=== PATIENT | female | born 1955 | race Caucasian/White ===

== ENCOUNTER 2023-12-01 17:08 | Inpatient (IN) | payer MEDICARE, MEDICAID ==
[~2023-12-01] VITALS: Ht 167.6 cm; Wt 74.8 kg
[2023-12-01] MEDS: aspirin 81mg tab.chew PO ONE (18:30)
[2023-12-01] MEDS: ondansetron 4 MG/5 ML oral solution 5ml CUP PO ONE (18:30)
[2023-12-01] MEDS: normal saline 1000ML IV soln IVB ONE (18:30)
[2023-12-01] MEDS ORDERED: FENT-90 TD (18:59)
[2023-12-01] MEDS ORDERED: GABA600T13 PO (19:00)
[2023-12-01] MEDS ORDERED: LEVE750T6 PO (19:01)
[2023-12-01] MEDS ORDERED: LOSA-415 PO (19:02)
[2023-12-01] MEDS ORDERED: HYDR-3965 PO (19:03)
[2023-12-01] MEDS ORDERED: POTA-192 PO (19:04)
[2023-12-01 19:35] LABS: BASOPHILS % (AUTO) 0.2 % (0-1); EOSINOPHILS % (AUTO) 0 % (0-6); HEMATOCRIT 38.5 % (35.0-45.0); HEMOGLOBIN 12.6 g/dl (12.0-16.0); LYMPHOCYTES # (AUTO) 0.2 X10'3 (1.1-4.8); LYMPHOCYTES % (AUTO) 2.7 % (21-51); MEAN CORPUSCULAR HEMOGLOBIN 29.9 PG (27.0-31.0); MEAN CORPUSCULAR HGB CONC 32.8 g/dL (33.0-36.5); MEAN PLATELET VOLUME 9.3 FL (7.4-10.4); MONOCYTES # (AUTO) 0.1 X10'3 (0-0.9); MONOCYTES % (AUTO) 1.5 % (2-12); NEUTROPHILS % (AUTO) 95.6 % (42-75); PLATELET COUNT 216 X10'3 (140-440); RED BLOOD COUNT 4.23 X10'6 (4.20-5.60); RED CELL DISTRIBUTION WIDTH 15.3 % (11.5-14.5); WHITE BLOOD COUNT 7.3 X10'3 (4.5-11.0)
[2023-12-01] MEDS ORDERED: TRIA1TAB3 PO (19:35)
[2023-12-01 19:42] LABS: APTT 34 SECONDS (22-32); INR 1.2 INR; PROTHROMBIN TIME 12.7 SECONDS (9.0-12.0)
[2023-12-01 20:00] LABS: ALBUMIN 2.7 G/DL (3.4-5.0); BLOOD UREA NITROGEN 18 MG/DL (7-18); BUN/CREATININE RATIO 23.4 (10.0-20.0); C-REACTIVE PROTEIN 1.84 MG/DL (0.0-0.5); CALCIUM 7.5 MG/DL (8.5-10.1); CHLORIDE 108 MMOL/L (99-107); CREATININE 0.77 MG/DL (0.40-0.90); ETHANOL < 10 MG/DL (<10); GLUCOSE 125 MG/DL (70-104); LACTATE DEHYDROGENASE 571 U/L (81-234); LIPASE 48 U/L (16-77); PHOSPHORUS 2.4 MG/DL (2.3-4.5); PRO BRAIN NATRIURETIC PEPTIDE 890 PG/ML (0-125); eCRCL 68 ML/MIN; eGFR 74 ML/MIN
[2023-12-01] MEDS: K and/or MAG REPLACEMENT MC SCH (20:00)
[2023-12-01] MEDS ORDERED: normal saline 1000ml 1,000 ML IV SCH (20:00)
[2023-12-01] MEDS ORDERED: magnesium 4gm in 100ml NS 100 ML IV PRN (20:00)
[2023-12-01] MEDS ORDERED: magnesium Cl slow-release 64mg tablet PO PRN (20:00)
[2023-12-01] MEDS ORDERED: potassium Cl 20 mEq SR tablet PO PRN (20:00)
[2023-12-01] MEDS ORDERED: mag hydrox/Alum hydrox/simeth 30ml oral suspension PO PRN (20:00)
[2023-12-01] MEDS ORDERED: acetaminophen 325mg tablet PO PRN ×2 (20:00)
[2023-12-01] MEDS ORDERED: magnesium 2GM in 50ml NS 50 ML IV PRN (20:00)
[2023-12-01] MEDS ORDERED: ondansetron/PF 4mg/2ml inj IV PRN (20:00)
[2023-12-01] MEDS ORDERED: heparin 10,000 units/1 ML INJ IV PRN (20:15)
[2023-12-01 20:16] LABS: ANION GAP 11 (8-16); SODIUM 146 MMOL/L (135-145)
[2023-12-01 20:21] LABS: POTASSIUM 2.9 MMOL/L (3.5-5.1)
[2023-12-01] MEDS: levoFLOXACIN-Levaquin 500mg/D5 100 ML IV SCH (20:40)
[2023-12-01] MEDS: HYDROcodone/acetaminophen 10/325mg tab PO PRN (20:50)
[2023-12-01] MEDS: sodium chloride 0.45% 1,000 ML IV SCH (20:55)
[2023-12-01] MEDS: losartan 25mg tablet PO SCH (21:00)
[2023-12-01] MEDS: levoFLOXACIN-Levaquin 750MG/D5 150 ML IV ONE (21:00)
[2023-12-01] MEDS: levetiracetam 250mg tablet PO ONE (22:47)
[2023-12-01] MEDS: clindamycin 300mg/D5W 50mL 50 ML IV SCH (23:13)
[2023-12-02] MEDS: potassium Cl 40MEQ/1/2NS 520ml 520 ML IV PRN (00:54)
[2023-12-02] MEDS: gabapentin 300mg capsule PO SCH (00:56)
[2023-12-02] MEDS: heparin 10,000 units/1 ML INJ IV ONE (02:15)
[2023-12-02] MEDS: heparin 25,000 UNIT/250ml bag 250 ML IV PRN ×2 (02:15→17:49)
[2023-12-02] MEDS: pantoprazole 40 MG vial IV SCH (07:28)
[2023-12-02] MEDS: levetiracetam 250mg tablet PO SCH (07:28)
[2023-12-02] MEDS: triamterene/HCTZ 37.5/25mg tablet PO SCH (07:41)
[2023-12-02 08:00] LABS: BASOPHILS % (AUTO) 0.5 % (0-1); EOSINOPHILS % (AUTO) 0 % (0-6); HEMATOCRIT 36.6 % (35.0-45.0); HEMOGLOBIN 11.8 g/dl (12.0-16.0); LYMPHOCYTES # (AUTO) 0.4 X10'3 (1.1-4.8); LYMPHOCYTES % (AUTO) 4.4 % (21-51); MEAN CORPUSCULAR HEMOGLOBIN 29.4 PG (27.0-31.0); MEAN CORPUSCULAR HGB CONC 32.2 g/dL (33.0-36.5); MEAN CORPUSCULAR VOLUME 91.4 FL (78-98); MEAN PLATELET VOLUME 9.2 FL (7.4-10.4); MONOCYTES # (AUTO) 0.7 X10'3 (0-0.9); NEUTROPHILS # (AUTO) 8.1 X10'3 (1.8-7.7); NEUTROPHILS % (AUTO) 87.1 % (42-75); PLATELET COUNT 230 X10'3 (140-440); RED CELL DISTRIBUTION WIDTH 15.2 % (11.5-14.5); WHITE BLOOD COUNT 9.3 X10'3 (4.5-11.0)
[2023-12-02 08:07] LABS: ALANINE AMINOTRANSFERASE 55 U/L (12-78); ALBUMIN 2.5 G/DL (3.4-5.0); ALBUMIN/GLOBULIN RATIO 0.8 (1.1-1.5); ALKALINE PHOSPHATASE 308 IU/L (46-116); ANION GAP 9 (8-16); ASPARTATE AMINO TRANSFERASE 111 U/L (10-37); BILIRUBIN,TOTAL 0.8 MG/DL (0.1-1.0); BLOOD UREA NITROGEN 18 MG/DL (7-18); BUN/CREATININE RATIO 23.7 (10.0-20.0); CALCIUM 7.4 MG/DL (8.5-10.1); CHLORIDE 108 MMOL/L (99-107); CREATININE 0.76 MG/DL (0.40-0.90); GLUCOSE 107 MG/DL (70-104); PHOSPHORUS 1.9 MG/DL (2.3-4.5); POTASSIUM 3.7 MMOL/L (3.5-5.1); SODIUM 143 MMOL/L (135-145); TOTAL CARBON DIOXIDE 26.1 MMOL/L (24-32); TOTAL PROTEIN 5.7 G/DL (6.4-8.2); eCRCL 69 ML/MIN; eGFR 75 ML/MIN
[2023-12-02 08:08] LABS: BILIRUBIN,URINE SMALL (Neg); CLARITY,URINE CLEAR (Clear); COLOR,URINE YELLOW (Yellow); GLUCOSE, URINE NEGATIVE (Neg); KETONES,URINE TRACE mg/dl (Neg); LEUKOCYTE ESTERASE ,URINE NEGATIVE (Neg); OCCULT BLOOD,URINE NEGATIVE (Neg); PH,URINE 6.5 (4.8-8.0); PROTEIN,URINE TRACE mg/dl (Neg)
[2023-12-02 08:13] LABS: UA COLLECTION TYPE FOLEY CATH
[2023-12-02 08:15] LABS: NITRITES, URINE NEGATIVE (Neg)
[2023-12-02 08:17] LABS: YEAST FEW /HPF (NEGATIVE)
[2023-12-02 08:18] LABS: BACTERIA,URINE 1+ /HPF (Neg); RBC,URINE NONE SEEN /HPF (0-2); SQUAMOUS EPITHELIAL CELL,UR FEW /LPF (FEW)
[2023-12-02 08:23] LABS: URINE AMPHETAMINE SCREEN NEGATIVE (Neg); URINE BARBITUATE SCREEN NEGATIVE (Neg); URINE BENZODIAZEPINES SCREEN NEGATIVE (Neg); URINE CANNABINOID SCREEN POSITIVE (Neg); URINE COCAINE SCREEN NEGATIVE (Neg); URINE METHADONE SCREEN NEGATIVE (Neg); URINE OPIATE SCREEN POSITIVE (Neg); URINE PHENCYCLIDINE SCREEN NEGATIVE (Neg)
[2023-12-02 13:32] VITALS: BP 125/75; PULSE 85; RESP 22; O2SAT 100
[2023-12-02] MEDS: HYDROcodone/acetaminophen 5mg/325mg tablet PO PRN (13:32)
[2023-12-02 16:30] LABS: BFSOURCE LEFT PLEURAL FLD
[2023-12-02 16:31] LABS: PLEURAL FLUID PH 7.415 (7.63-7.65)
[2023-12-02 16:49] LABS: GLUCOSE,BODY FLUID 119 MG/DL; LDH,BODY FLUID 340 U/L; TOTAL PROTEIN,BODY FLUID 3.9 G/DL
[2023-12-02] MEDS ORDERED: heparin 10,000 units/1 ML INJ IV PRN (17:25)
[2023-12-02 17:33] LABS: LYMPHOCYTES,BODY FLUID 74 %; MONOCYTES,BODY FLUID 13 %; NEUTROPHILS,BODY FLUID 13 %
[2023-12-02 17:34] LABS: BF MESOTHELIAL CELLS OCCASIONAL; BF RBC COUNT 13550 /CU MM; BF WBC COUNT 225 /CU MM (0-1000); BFAPPEAR CLOUDY; BFCOLOR AMBER; BFSOURCE OTHER; BFVOLUME 1830 ML
[2023-12-02 18:00] VITALS: BP 125/75; PULSE 85; RESP 22; O2SAT 100
[2023-12-02 20:00] VITALS: RESP 18; O2SAT 98
[2023-12-02 22:00] VITALS: BP 121/71; PULSE 79; RESP 16; TEMP 97.9; O2SAT 99
[2023-12-03] VITALS (7 sets, daily range): BP systolic 112–125; BP diastolic 78–84; PULSE 72–81; RESP 13–20; TEMP 96.7–98.2; O2SAT 96–99
[2023-12-03 07:37] LABS: BASOPHILS % (AUTO) 0.3 % (0-1); EOSINOPHILS % (AUTO) 0.2 % (0-6); HEMATOCRIT 38.1 % (35.0-45.0); HEMOGLOBIN 12.7 g/dl (12.0-16.0); LYMPHOCYTES # (AUTO) 0.5 X10'3 (1.1-4.8); MEAN CORPUSCULAR HEMOGLOBIN 30.3 PG (27.0-31.0); MEAN CORPUSCULAR HGB CONC 33.3 g/dL (33.0-36.5); MEAN PLATELET VOLUME 9.3 FL (7.4-10.4); MONOCYTES # (AUTO) 0.8 X10'3 (0-0.9); MONOCYTES % (AUTO) 7.9 % (2-12); NEUTROPHILS # (AUTO) 8.5 X10'3 (1.8-7.7); NEUTROPHILS % (AUTO) 86.6 % (42-75); PLATELET COUNT 193 X10'3 (140-440); RED BLOOD COUNT 4.19 X10'6 (4.20-5.60); RED CELL DISTRIBUTION WIDTH 14.8 % (11.5-14.5); WHITE BLOOD COUNT 9.8 X10'3 (4.5-11.0)
[2023-12-03 08:18] LABS: ALANINE AMINOTRANSFERASE 50 U/L (12-78); ALBUMIN 2.3 G/DL (3.4-5.0); ALBUMIN/GLOBULIN RATIO 0.8 (1.1-1.5); ALKALINE PHOSPHATASE 292 IU/L (46-116); ANION GAP 7 (8-16); ASPARTATE AMINO TRANSFERASE 117 U/L (10-37); BILIRUBIN,TOTAL 1.1 MG/DL (0.1-1.0); BLOOD UREA NITROGEN 11 MG/DL (7-18); BUN/CREATININE RATIO 17.7 (10.0-20.0); CALCIUM 7.4 MG/DL (8.5-10.1); CHLORIDE 106 MMOL/L (99-107); CREATININE 0.62 MG/DL (0.40-0.90); GLUCOSE 105 MG/DL (70-104); MAGNESIUM 1.8 MG/DL (1.5-2.4); POTASSIUM 3.4 MMOL/L (3.5-5.1); SODIUM 139 MMOL/L (135-145); TOTAL CARBON DIOXIDE 26.2 MMOL/L (24-32); TOTAL PROTEIN 5.3 G/DL (6.4-8.2); eCRCL 79 ML/MIN; eGFR > 90 ML/MIN
[2023-12-03 09:05] LABS: PHOSPHORUS 0.9 MG/DL (2.3-4.5)
[2023-12-03] MEDS: potassium Cl 20 mEq SR tablet PO PRN (09:33)
[2023-12-03] MEDS: fentaNYL 12 MCG/hour patch.TD72 TD SCH (13:51)
[2023-12-03] MEDS: lactose-reduced food (Ensure Enlive) - 237ml bottle PO SCH (18:00)
[2023-12-03] MEDS: magnesium hydroxide 30ml (MOM) UD suspension PO PRN (19:46)
[2023-12-03] MEDS: Neutra Phos packet PO SCH (20:26)
[2023-12-03 22:48] LABS: APTT 72 SECONDS (22-32)
[2023-12-04 02:00] VITALS: BP 120/79; PULSE 82; RESP 13; TEMP 97.3; O2SAT 98
[2023-12-04 06:00] VITALS: BP 134/85; PULSE 77; RESP 17; TEMP 97.3; O2SAT 96
[2023-12-04 06:07] LABS: BASOPHILS % (AUTO) 0.2 % (0-1); EOSINOPHILS % (AUTO) 0.4 % (0-6); HEMATOCRIT 40.9 % (35.0-45.0); HEMOGLOBIN 13.6 g/dl (12.0-16.0); LYMPHOCYTES # (AUTO) 0.4 X10'3 (1.1-4.8); MEAN CORPUSCULAR HEMOGLOBIN 30.3 PG (27.0-31.0); MEAN CORPUSCULAR HGB CONC 33.4 g/dL (33.0-36.5); MEAN CORPUSCULAR VOLUME 90.8 FL (78-98); MONOCYTES # (AUTO) 0.8 X10'3 (0-0.9); MONOCYTES % (AUTO) 7.7 % (2-12); NEUTROPHILS % (AUTO) 87.7 % (42-75); PLATELET COUNT 170 X10'3 (140-440); RED CELL DISTRIBUTION WIDTH 15.3 % (11.5-14.5); WHITE BLOOD COUNT 10.3 X10'3 (4.5-11.0)
[2023-12-04 06:43] LABS: ALANINE AMINOTRANSFERASE 52 U/L (12-78); ALBUMIN 2.2 G/DL (3.4-5.0); ALBUMIN/GLOBULIN RATIO 0.7 (1.1-1.5); ALKALINE PHOSPHATASE 315 IU/L (46-116); ANION GAP 5 (8-16); ASPARTATE AMINO TRANSFERASE 118 U/L (10-37); BILIRUBIN,TOTAL 1.4 MG/DL (0.1-1.0); BLOOD UREA NITROGEN 8 MG/DL (7-18); BUN/CREATININE RATIO 14.5 (10.0-20.0); CALCIUM 7.5 MG/DL (8.5-10.1); CHLORIDE 103 MMOL/L (99-107); CREATININE 0.55 MG/DL (0.40-0.90); GLUCOSE 106 MG/DL (70-104); SODIUM 134 MMOL/L (135-145); TOTAL CARBON DIOXIDE 26.1 MMOL/L (24-32); TOTAL PROTEIN 5.4 G/DL (6.4-8.2); eCRCL 89 ML/MIN; eGFR > 90 ML/MIN
[2023-12-04 06:44] LABS: POTASSIUM 4.4 MMOL/L (3.5-5.1)
[2023-12-04 06:46] LABS: PHOSPHORUS 0.8 MG/DL (2.3-4.5)
[2023-12-04 11:00] VITALS: BP 115/81; PULSE 87; RESP 18; TEMP 97.6; O2SAT 98
[2023-12-04] MEDS ORDERED: sodium phosphate inj. 15 MMOL in dextrose 5%-water 250 ML IV PRN (11:20)
[2023-12-04] MEDS: morphine 2 MG/ML inj. syringe IV PRN (11:32)
[2023-12-04] MEDS: bisacodyl 10mg suppository rectal RC PRN (11:32)
[2023-12-04] MEDS: sodium phosphate inj. 30 MMOL in dextrose 5%-water 250 ML IV PRN (12:09)
[2023-12-04] MEDS: HYDROcodone/acetaminophen 10/325mg tab PO PRN (12:48)
[2023-12-04 15:00] VITALS: BP 109/74; PULSE 92; RESP 24; TEMP 98.5; O2SAT 97
[2023-12-04 18:00] VITALS: BP 120/86; PULSE 80; RESP 16; TEMP 96.8; O2SAT 93
[2023-12-05 07:00] VITALS: BP 99/70; PULSE 85; RESP 22; TEMP 97.1; O2SAT 98
[2023-12-05 07:14] VITALS: TEMP 97.1
[2023-12-05 07:54] LABS: BASOPHILS # (AUTO) 0.1 X10'3 (0-0.2); BASOPHILS % (AUTO) 0.4 % (0-1); EOSINOPHILS % (AUTO) 0.3 % (0-6); HEMATOCRIT 40.9 % (35.0-45.0); HEMOGLOBIN 13.6 g/dl (12.0-16.0); LYMPHOCYTES # (AUTO) 0.5 X10'3 (1.1-4.8); LYMPHOCYTES % (AUTO) 3.4 % (21-51); MEAN CORPUSCULAR HEMOGLOBIN 30.1 PG (27.0-31.0); MEAN CORPUSCULAR HGB CONC 33.2 g/dL (33.0-36.5); MEAN CORPUSCULAR VOLUME 90.5 FL (78-98); MEAN PLATELET VOLUME 9.4 FL (7.4-10.4); MONOCYTES # (AUTO) 1.2 X10'3 (0-0.9); NEUTROPHILS # (AUTO) 12.9 X10'3 (1.8-7.7); NEUTROPHILS % (AUTO) 87.9 % (42-75); PLATELET COUNT 203 X10'3 (140-440); RED BLOOD COUNT 4.52 X10'6 (4.20-5.60); RED CELL DISTRIBUTION WIDTH 15.3 % (11.5-14.5); WHITE BLOOD COUNT 14.7 X10'3 (4.5-11.0)
[2023-12-05] MEDS: triamterene/HCTZ 37.5/25mg tablet PO SCH (08:00)
[2023-12-05 08:11] LABS: ALANINE AMINOTRANSFERASE 61 U/L (12-78); ALBUMIN 2.2 G/DL (3.4-5.0); ALBUMIN/GLOBULIN RATIO 0.7 (1.1-1.5); ALKALINE PHOSPHATASE 343 IU/L (46-116); ANION GAP 5 (8-16); ASPARTATE AMINO TRANSFERASE 142 U/L (10-37); BILIRUBIN,TOTAL 1.7 MG/DL (0.1-1.0); BLOOD UREA NITROGEN 9 MG/DL (7-18); BUN/CREATININE RATIO 14.3 (10.0-20.0); CALCIUM 7.6 MG/DL (8.5-10.1); CHLORIDE 99 MMOL/L (99-107); CREATININE 0.63 MG/DL (0.40-0.90); GLUCOSE 112 MG/DL (70-104); PHOSPHORUS 1.8 MG/DL (2.3-4.5); POTASSIUM 4.2 MMOL/L (3.5-5.1); SODIUM 130 MMOL/L (135-145); TOTAL CARBON DIOXIDE 25.6 MMOL/L (24-32); TOTAL PROTEIN 5.5 G/DL (6.4-8.2); eCRCL 78 ML/MIN; eGFR > 90 ML/MIN
[2023-12-05 08:50] VITALS: BP 88/62
[2023-12-05] MEDS ORDERED: acetaminophen 325mg tablet PO PRN (09:40)
[2023-12-05] MEDS: morphine 10mg/0.5ml (conc. morphine) oral syringe PO PRN (10:16)
[2023-12-05 11:32] VITALS: BP 96/68; PULSE 81; RESP 26; TEMP 97.7; O2SAT 99
[2023-12-05 18:00] VITALS: BP 95/67; PULSE 90; RESP 16; TEMP 97.6; O2SAT 99
[2023-12-05] MEDS: docusate sod 100mg capsule PO SCH (19:13)
[2023-12-06] MEDS: morphine 4 MG/ML inj SYRINge IV ONE (05:26)
[2023-12-06 07:00] VITALS: BP 92/60; PULSE 89; RESP 15; TEMP 97.9; O2SAT 100
[2023-12-06 13:35] VITALS: RESP 20
[2023-12-06 13:49] VITALS: PULSE 168; O2SAT 97
[2023-12-06] MEDS: LORazepam 2 mg/ml vial IV PRN (14:23)
== END 2023-12-06 16:30 | DRG 180 ==
LOC: ER 17:09 → ED HOLD 20:22 → PCU 3S 12-02 10:16
PROVIDERS: ADMIT Internal Medicine; ATTEND Internal Medicine
PROC: 0W9B3ZZ Drainage of Left Pleural Cavity, Percutaneous Approach (ICD-10-PCS; principal; 2023-12-02)
DX: C34.02 Malignant neoplasm of left main bronchus (principal); E43 Unspecified severe protein-calorie malnutrition; J96.01 Acute respiratory failure with hypoxia; J18.8 Other pneumonia, unspecified organism; J91.0 Malignant pleural effusion; C78.7 Secondary malignant neoplasm of liver and intrahepatic bile duct; J44.0 Chronic obstructive pulmonary disease with (acute) lower respiratory infection; E87.1 Hypo-osmolality and hyponatremia; D68.69 Other thrombophilia; I82.411 Acute embolism and thrombosis of right femoral vein; R18.8 Other ascites; K76.6 Portal hypertension; Z66 Do not resuscitate; I11.0 Hypertensive heart disease with heart failure; E83.39 Other disorders of phosphorus metabolism; F41.9 Anxiety disorder, unspecified; Z96.643 Presence of artificial hip joint, bilateral; F17.200 Nicotine dependence, unspecified, uncomplicated; G40.909 Epilepsy, unspecified, not intractable, without status epilepticus; Z20.822 Contact with and (suspected) exposure to COVID-19; E87.6 Hypokalemia; I50.9 Heart failure, unspecified; K74.60 Unspecified cirrhosis of liver; B18.2 Chronic viral hepatitis C; F12.90 Cannabis use, unspecified, uncomplicated; R59.0 Localized enlarged lymph nodes; I48.91 Unspecified atrial fibrillation; Z86.718 Personal history of other venous thrombosis and embolism; Z68.26 Body mass index [BMI] 26.0-26.9, adult; Z88.0 Allergy status to penicillin; Z88.6 Allergy status to analgesic agent; Z88.8 Allergy status to other drugs, medicaments and biological substances; Z86.73 Personal history of transient ischemic attack (TIA), and cerebral infarction without residual deficits; Z79.899 Other long term (current) drug therapy
CPT/HCPCS: 36415; 71045; 71250; 80048; 80053; 80305; 80320; 81001; 82945; 83605; 83615; 83690; 83735; 83880; 83986; 84100; 84145; 84157; 84484; 85025; 85610; 85730; 86140; 87040; 87070; 87075; 87081; 87088; 87102; 87502; 87503; 87811; 88108; 88184; 88185; 88305; 89051; 92508; 92616; 93005; 93306; 99285; A4649; A5200; A6213; A6250; A6258; A6449; C9113; G0378; J1644; J1956; J2060; J2270; J3480; J3490; J7030; J7060